=== PATIENT | male | born 1970 | race African-American/Black ===

== ENCOUNTER → 2017-07-27 | Day surgery (SDC) | payer OTHER, MEDICARE ==
[~2017-07-27] MED LIST: AMLODIPINE BESY10 MG PO; ASPIR 8181 MG PO; COREG25 MG PO; FISH OIL 1,001000 M2 PO; GLUCOTROL5 MG PO; HYDROCODONE-AP1 EAC6 PO; LIPITOR80 MG PO; MOBIC15 MG PO; PLAVIX 75 MG TA75 M1 PO
[2017-07-27 08:06] LABS: CALCIUM 8.6 mg/dL (8.5-10.1); CREATININE 4.7 mg/dL (0.6-1.3); POTASSIUM 4.7 mmol/L (3.5-5.1)
[2017-07-27 08:07] LABS: HEMATOCRIT 32.2 % (42.0-52.0); HEMOGLOBIN 10.7 gm/dL (14.0-18.0); MCHC 33.3 g/dL (28.0-37.0); MCV 93.1 fL (80.0-100.0); RBC 3.46 mil/uL (4.50-6.00); RDW-CV 13.8 % (10.5-14.5); WBC 8.7 thou/uL (4.0-11.0)
--- NOTE | 2017-07-27 11:06 | EKG ---
[place] [address] ELECTROCARDIOGRAM REPORT Name: LATISHA MCPHERSON Room: [facility]#: [id number] Admission: 07/27/17 Attend Phys: Pool Peguero Discharge: Date of : 72 Report #: [id number] THIS REPORT FOR: //name// [facility] Test Date: 2017-07-27 Test Time: 08:31:13 Pat Name: LATISHA MCPHERSON Department: Room: Gender: M Transporter Radiology: : 1970 Requested By: Pool Peguero Order Number: [id number] Reading MD: Alvaro Patel Measurements Intervals [place] Rate: 62 P: 35 UT: 153 QRS: 36 QRSD: 105 T: -10 QT: 463 QTc: 471 Interpretive Statements Sinus rhythm Probable left ventricular hypertrophy Borderline T abnormalities, inferior leads No previous ECG available for comparison Electronically Signed On 07-27-2017 11:06:18 LOOP TENDER by Alvaro Patel [email or web address] <ELECTRONICALLY SIGNED> By: Alvaro Patel MD, [facility] 07/27/17 1106 0831 0831 Alvaro Patel MD, FACC /EPI
--- NOTE | 2017-07-27 11:46 | PROC ---
[facility] [address] [place] [address] PROCEDURE REPORT Name: LATISHA MCPHERSON Room: [facility].#: [id number] Admission: 07/27/17 Attend Phys: Pool Peguero Discharge: Date of : 72 Report #: [id number] THIS REPORT FOR: //name// CC: [facility] physician/PCP Pool Peguero DATE OF SERVICE: 07/27/2017 PREOPERATIVE DIAGNOSIS: End-stage renal disease. POSTOPERATIVE DIAGNOSIS: End-stage renal disease. OPERATION: 1. Laparoscopic peritoneal dialysis catheter placement. 2. Laparoscopic omentopexy. SURGEON: Pool Peguero MD ANESTHESIA: General. ESTIMATED BLOOD LOSS: Minimal. SPECIMEN: None. DESCRIPTION OF PROCEDURE: After informed consent was obtained, the patient was brought to the operating room and placed supine. SCDs were placed and working, preoperative antibiotics were administered, general anesthesia was induced. The abdomen was prepped and draped in the usual sterile fashion. A 5 mm incision was made in the left upper quadrant. A 5 mm trocar was placed under direct vision. Pneumoperitoneum was established. A left-sided 5 mm port was placed. An 8 mm port was placed in the left rectus sheath. Catheter was placed through the 8 mm port. The port was then removed. The cuff was then brought into the rectus sheath. The catheter was then tunneled to the left upper quadrant of the abdomen. It was flushed with heparinized saline. It flushed and drained easily. Omentopexy was performed using 2-0 Vicryl. I tacked the omentum using a suture passer in the right upper and the left upper quadrant. The ports were removed under direct vision. The skin was closed with 4-0 Monocryl. Incisions were sealed with Steri-Strips and sterile gauze. COMPLICATIONS: [place] [id number] PROCEDURE REPORT Name: LATISHA MCPHERSON Room: [facility]#: [id number] Admission: 07/27/17 Attend Phys: Pool Peguero Discharge: Date of : 72 Report #: [id number] DISPOSITION: The patient was taken to recovery in satisfactory condition. <ELECTRONICALLY SIGNED> By: Pool Peguero MD 07/27/17 1146 1036 1104Pool Peguero MD /nt
== END | disposition home or self-care (01) ==
LOC: M.SUR 07:29
PROVIDERS: Student in an Organized Health Care Education/Training Program
DX: N18.9 Chronic kidney disease, unspecified (principal); Z79.82 Long term (current) use of aspirin; Z79.899 Other long term (current) drug therapy; Z79.891 Long term (current) use of opiate analgesic

== ENCOUNTER → 2019-10-12 | Outpatient (CLI) | payer MEDICARE ==
[~2019-10-12] MED LIST changes: +FENOFIBRATE160 MG PO; +LACTULOSE20 GM/30 M PO; +MAG-OXIDE400 MG PO; +MIRALAX17 GM PO; +NIFEDIPINE ER60 M1 PO; +PROTONIX40 M1 PO; +SODIUM BICARBO650 M3 PO; +VITAMIN D PO
== END | disposition home or self-care (01) ==
LOC: M.SUR 10-06 07:33 → M.LAB 08:00 → M.SUR 10-13 06:48 → EDSTATUS 10-13 14:07 → M.SUR 10-13 15:32
DX: N18.6 End stage renal disease (principal); Z53.8 Procedure and treatment not carried out for other reasons

== ENCOUNTER → 2019-10-25 | Day surgery (SDC) | payer MEDICARE, MEDICAID ==
[~2019-10-25] MED LIST changes: +NORCO 5-325 TA1 EAC1 PO
--- NOTE | ~2019-10-25 | OP ---
[facility] [address] [place] [address] OPERATIVE REPORT Name: LATISHA MCPHERSON Room: [facility]#: [id number] Admission: 10/25/19 Attend Phys: Pool Peguero Discharge: Date of : 72 Report #: [id number] THIS REPORT FOR: //name// cc: Nathan Zhao Matthew DO ~ THIS REPORT FOR: //name// CC: Pool Zhao DATE OF SERVICE: 10/25/2019 PREOPERATIVE DIAGNOSIS: Infected peritoneal catheter. POSTOPERATIVE DIAGNOSIS: Infected peritoneal catheter. PROCEDURE: Removal of tunneled intraperitoneal catheter. SURGEON: Pool Peguero MD ANESTHESIA: General. ESTIMATED BLOOD LOSS: Minimal. SPECIMEN: Catheter tip for culture and sensitivity. DESCRIPTION OF PROCEDURE: After informed consent was obtained, the patient was brought to the operating room and placed supine. SCDs were placed and working, preoperative antibiotics were administered, general anesthesia was induced. The abdomen was prepped and draped in the usual sterile fashion. A 10 mm incision was made over the internal cuff site. Cautery dissection was made down through the subcutaneous tissue. The internal cuff was identified. It was freed up with cautery. The catheter pulled out easily. I then extended the exit site incision approximately 1 cm. The external cuff was identified. It was freed up with cautery. The catheter then slid out very easily. The skin was then closed with 4-0 Monocryl in running subcuticular fashion. Incisions were sealed with Dermabond. COMPLICATIONS: None. DISPOSITION: The patient was taken to recovery in satisfactory condition. By: 1303 1310Pool Peguero MD /nt
[2019-10-25 11:03] LABS: HEMOGLOBIN 10.1 gm/dL (14.0-18.0); MCHC 33.7 g/dL (28.0-37.0); MCV 95.1 fL (80.0-100.0); MPV 8.6 fl. (7.2-11.1); RBC 3.15 mil/uL (4.50-6.00); RDW-CV 13.9 % (10.5-14.5); WBC 8.3 thou/uL (4.0-11.0)
[2019-10-25 11:18] LABS: CREATININE 9.2 mg/dL (0.6-1.3)
[2019-10-25 11:20] LABS: APTT 27.3 Seconds (25.0-31.3); INR 1.1; PROTIME 11.3 Seconds (9.20-11.50)
--- NOTE | 2019-10-25 14:14 | EKG ---
[place] [address] ELECTROCARDIOGRAM REPORT Name: KYLATISHA Bradley Room: [facility]#: [id number] Admission: 10/25/19 Attend Phys: Pool Hopper Discharge: Date of : 72 Date of Service: 10/25/19 1041 Report #: [id number] THIS REPORT FOR: //name// [facility] Test Date: 2019-10-25 Test Time: 10:41:28 Pat Name: LATISHA MCPHERSON Department: Room: Gender: Design Lead[facility] 1970 Requested By: Pool Peguero Order Number: [id number] Laverne MD: Alvaro Patel Measurements Intervals [place] Rate: 55 P: 26 ND: 163 QRS: 18 QRSD: 103 T: 11 QT: 463 QTc: 443 Interpretive Statements Sinus rhythm Probable left ventricular hypertrophy Compared to ECG 07/27/2017 08:31:13 T-wave abnormality no longer present Electronically Signed On 10-25-2019 14:12:59 CDT by Alvaro Patel [email or web address] <ELECTRONICALLY SIGNED> By: Alvaro Patel MD, [facility] 10/25/19 1412 1041 1041 Alvaro Patel MD, [facility] /EPI
== END | disposition home or self-care (01) ==
LOC: M.SUR 05:52
PROVIDERS: Surgery
DX: T85.79XA Infection and inflammatory reaction due to other internal prosthetic devices, implants and grafts, initial encounter (principal); B96.89 Other specified bacterial agents as the cause of diseases classified elsewhere; Z98.890 Other specified postprocedural states; Z79.899 Other long term (current) drug therapy; Y83.8 Other surgical procedures as the cause of abnormal reaction of the patient, or of later complication, without mention of misadventure at the time of the procedure

== ENCOUNTER → 2019-12-18 | Day surgery (SDC) | payer MEDICARE, MEDICAID ==
[~2019-12-18] MED LIST changes: +LORCET 5-325 M1 EACH PO; +NORCO 5-325 TA1 EAC2 PO
[2019-12-18 07:27] LABS: HEMATOCRIT 36.1 % (42.0-52.0); HEMOGLOBIN 12.2 gm/dL (14.0-18.0); MCH 33.3 pg (26.0-34.0); MCHC 33.7 g/dL (28.0-37.0); MCV 98.7 fL (80.0-100.0); MPV 8.7 fl. (7.2-11.1); RBC 3.66 mil/uL (4.50-6.00); RDW-CV 15.8 % (10.5-14.5); WBC 7.3 thou/uL (4.0-11.0)
[2019-12-18 07:31] LABS: CALCIUM 8.4 mg/dL (8.5-10.1); CREATININE 10.8 mg/dL (0.6-1.3)
[2019-12-18 07:33] LABS: APTT 25.3 Seconds (25.0-31.3); PROTIME 10.5 Seconds (9.20-11.50)
--- NOTE | 2019-12-21 13:14 | OP ---
[facility] [address] [place] [address] OPERATIVE REPORT Name: LATISHA MCPHERSON Room: [facility]#: [id number] Admission: 12/18/19 Attend Phys: Pool Peguero Discharge: Date of : 72 Report #: [id number] THIS REPORT FOR: //name// cc: Nathan Zhao Matthew DO ~ THIS REPORT FOR: //name// CC: Pool Zhao DATE OF SERVICE: 12/18/2019 PREOPERATIVE DIAGNOSIS: End-stage renal disease. POSTOPERATIVE DIAGNOSIS: End-stage renal disease. PROCEDURES: 1. Laparoscopic placement of tunneled intraperitoneal catheter. 2. Laparoscopic omentopexy. SURGEON: Pool Peguero MD ANESTHESIA: General. ESTIMATED BLOOD LOSS: Minimal. SPECIMEN: None. DESCRIPTION OF PROCEDURE: After informed consent was obtained, the patient was brought to the operating room and placed supine. SCDs were placed and working, preoperative antibiotics were administered, general anesthesia was induced. The abdomen was prepped and draped in the usual sterile fashion. A 5 mm incision was made in the left upper quadrant. A 5 mm trocar was placed under direct vision. Pneumoperitoneum was established. A left-sided 5 mm trocar was placed. An 8 mm trocar was placed in the right rectus sheath. The 62 cm [employer] catheter was placed through the catheter. Tip was then placed into the pelvis in the midline. Catheter was then tunneled to the right upper quadrant of the abdomen using a tunneling device. The omentum and the midline was then grasped and brought up to the abdominal wall. It was tacked to the abdominal wall using a PMI suture passer and a 2-0 Vicryl suture. The CO2 was then released. The catheter flushed easily with 750 mL of heparinized saline. It drained easily as well. 500 mL of fluid was left in the abdomen. The skin was then closed with 4-0 Monocryl[place] [address] OPERATIVE REPORT Name: LATISHA MCPHERSON Room: [facility]#: [id number] Admission: 12/18/19 Attend Phys: Pool Peguero Discharge: Date of : 72 Report #: [id number] with Steri-Strips and gauze. Sterile occlusive dressing was applied. COMPLICATIONS: None. DISPOSITION: The patient was taken to recovery in satisfactory condition. <ELECTRONICALLY SIGNED> By: Pool Peguero MD 12/21/19 1314 1018 1024Pool Peguero MD /nt
== END | disposition home or self-care (01) ==
LOC: M.SUR 07:02
PROVIDERS: ATTEND Surgery
DX: I12.0 Hypertensive chronic kidney disease with stage 5 chronic kidney disease or end stage renal disease (principal); E11.22 Type 2 diabetes mellitus with diabetic chronic kidney disease; N18.6 End stage renal disease; G47.30 Sleep apnea, unspecified; F32.9 Major depressive disorder, single episode, unspecified; F41.9 Anxiety disorder, unspecified; E78.00 Pure hypercholesterolemia, unspecified; Z79.899 Other long term (current) drug therapy; Z20.828 Contact with and (suspected) exposure to other viral communicable diseases; Z86.73 Personal history of transient ischemic attack (TIA), and cerebral infarction without residual deficits; Z79.84 Long term (current) use of oral hypoglycemic drugs; Z98.890 Other specified postprocedural states; Z79.82 Long term (current) use of aspirin

== ENCOUNTER 2019-12-19 10:48 | Emergency (ER) | payer MEDICARE, MEDICAID ==
[~2019-12-19] VITALS: Ht 203.2 cm; Wt 102.1 kg
[~2019-12-19 10:48] MED LIST changes: -LORCET 5-325 M1 EACH PO
[2019-12-19 11:59] VITALS: BP 181/88
== END 2019-12-19 12:00 | disposition home or self-care (01) ==
LOC: M.ERS 10:48
DX: L76.21 Postprocedural hemorrhage of skin and subcutaneous tissue following a dermatologic procedure (principal); G89.18 Other acute postprocedural pain; R10.84 Generalized abdominal pain; E11.22 Type 2 diabetes mellitus with diabetic chronic kidney disease; N18.6 End stage renal disease; M06.9 Rheumatoid arthritis, unspecified; Z99.2 Dependence on renal dialysis; Z86.73 Personal history of transient ischemic attack (TIA), and cerebral infarction without residual deficits; Y83.8 Other surgical procedures as the cause of abnormal reaction of the patient, or of later complication, without mention of misadventure at the time of the procedure; Y82.8 Other medical devices associated with adverse incidents

== ENCOUNTER 2019-12-19 13:36 | Emergency (ER) | payer MEDICARE, MEDICAID ==
[~2019-12-19] VITALS: Ht 203.2 cm; Wt 102.1 kg
[2019-12-19 14:51] VITALS: BP 151/70
== END 2019-12-19 14:52 | disposition home or self-care (01) ==
LOC: M.ERS 13:36
DX: G89.18 Other acute postprocedural pain (principal); R10.11 Right upper quadrant pain; R10.84 Generalized abdominal pain; E11.9 Type 2 diabetes mellitus without complications; M06.9 Rheumatoid arthritis, unspecified; E11.22 Type 2 diabetes mellitus with diabetic chronic kidney disease; N18.6 End stage renal disease; Z99.2 Dependence on renal dialysis

== ENCOUNTER → 2020-02-02 | Day surgery (SDC) | payer MEDICARE, MEDICAID ==
[~2020-02-02] MED LIST changes: +LORCET 5-325 M1 EACH PO
--- NOTE | ~2020-02-02 | OP ---
[facility] [address] [place] [address] OPERATIVE REPORT Name: LATISHA MCPHERSON Room: [facility]#: [id number] Admission: 02/02/20 Attend Phys: Pool Peguero Discharge: Date of : 72 Report #: [id number] THIS REPORT FOR: //name// cc: Nathan Zhao Matthew DO ~ CC: Pool Zhao DATE OF SERVICE: 02/02/2020 PREOPERATIVE DIAGNOSIS: Infected peritoneal catheter. POSTOPERATIVE DIAGNOSIS: Infected peritoneal catheter. PROCEDURE: Removal of tunneled intraperitoneal catheter. SURGEON: Pool Peguero MD ANESTHESIA: General. ESTIMATED BLOOD LOSS: Minimal. SPECIMEN: None. DESCRIPTION OF PROCEDURE: After informed consent was obtained, the patient was brought to the operating room and placed supine. SCDs were placed and working, preoperative antibiotics were administered, general anesthesia was induced. The abdomen was prepped and draped in usual sterile fashion. A 1 cm elliptical incision was made around the external cuff. Cautery dissection was made to free up the cuff. I then made a counter incision over the internal cuff. Cautery dissection was made down to the fascia and the internal cuff was freed up. The catheter then was removed very easily. The fascia at the internal cuff site was closed with a single [id number] 0 Vicryl suture. Skin was closed with 4-0 Monocryl in running subcuticular fashion. Incisions were dressed with Steri-Strips and gauze. COMPLICATIONS: None. DISPOSITION: The patient was taken to recovery in satisfactory condition. By: 1157 1208Joibrahima Peguero MD /nt
[2020-02-02 10:10] LABS: HEMATOCRIT 28.2 % (42.0-52.0); HEMOGLOBIN 9.6 gm/dL (14.0-18.0); MCH 33.2 pg (26.0-34.0); MCV 97.7 fL (80.0-100.0); MPV 8.3 fl. (7.2-11.1); RBC 2.89 mil/uL (4.50-6.00); RDW-CV 14.9 % (10.5-14.5); WBC 8.4 thou/uL (4.0-11.0)
[2020-02-02 10:18] LABS: CALCIUM 8.6 mg/dL (8.5-10.1); CREATININE 9.6 mg/dL (0.6-1.3); POTASSIUM 4.1 mmol/L (3.5-5.1)
[2020-02-02 10:22] LABS: APTT 26.4 Seconds (25.0-31.3); INR 1.1
--- NOTE | 2020-02-02 10:34 | EKG ---
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 Administrator: : 1970 Requested By: Pool Peguero Order Number: [id number] Laverne MD: Panfilo Dos Santos Measurements Intervals [place] Rate: 60 P: 27 [place]: 156 QRS: 20 QRSD: 106 T: 27 QT: 457 QTc: 457 Interpretive Statements Sinus rhythm Probable left ventricular hypertrophy Compared to ECG 10/25/2019 10:41:28 No significant changes Electronically Signed On 02-02-2020 10:34:01 CDT by Panfilo Dos Santos [email or web address] <ELECTRONICALLY SIGNED> By: Panfilo Dos Santos MD, [facility] 02/02/20 1034 0954 0954 Panfilo Dos Santos MD, [facility] /EPI
== END | disposition home or self-care (01) ==
LOC: M.SUR 09:25
PROVIDERS: ATTEND Surgery
DX: T85.71XA Infection and inflammatory reaction due to peritoneal dialysis catheter, initial encounter (principal); Z20.828 Contact with and (suspected) exposure to other viral communicable diseases; E11.22 Type 2 diabetes mellitus with diabetic chronic kidney disease; N18.6 End stage renal disease; Z86.73 Personal history of transient ischemic attack (TIA), and cerebral infarction without residual deficits; X58.XXXA Exposure to other specified factors, initial encounter; Y93.89 Activity, other specified; Y92.89 Other specified places as the place of occurrence of the external cause; Y99.8 Other external cause status

== ENCOUNTER → 2020-04-02 | Outpatient (CLI) | payer MEDICARE, MEDICAID | LOC: M.LAB 10:39 | PROVIDERS: ATTEND Surgery | DX: Z01.812 Encounter for preprocedural laboratory examination (principal); Z20.828 Contact with and (suspected) exposure to other viral communicable diseases; N18.6 End stage renal disease ==

== ENCOUNTER → 2020-04-05 | Day surgery (SDC) | payer MEDICARE, MEDICAID ==
--- NOTE | ~2020-04-05 | OP ---
[facility] [address] [place] [address] OPERATIVE REPORT Name: LATISHA MCPHERSON Room: [facility]#: [id number] Admission: 04/05/20 Attend Phys: Pool Peguero Discharge: Date of : 72 Report #: [id number] THIS REPORT FOR: //name// cc: Nathan Zhao Matthew DO ~ CC: Pool Zhao DATE OF SERVICE: 04/05/2020 PREOPERATIVE DIAGNOSIS: End-stage renal disease. POSTOPERATIVE DIAGNOSIS: End-stage renal disease. OPERATION: Laparoscopic placement of tunneled intraperitoneal catheter. SURGEON: Pool Peguero MD ANESTHESIA: General. ESTIMATED BLOOD LOSS: Minimal. SPECIMEN: None. DESCRIPTION OF PROCEDURE: After informed consent was obtained, the patient was brought to the operating room and placed supine. SCDs were placed and working, preoperative antibiotics were administered, general anesthesia was induced. The abdomen was prepped and draped in the usual sterile fashion. A 5 mm incision was made in the left upper quadrant. A 5 mm trocar was placed under direct vision. Pneumoperitoneum was established. A left rectus sheath, 8 mm trocar was placed. 62 cm Covidien catheter was inserted. It was then pulled back, so that the internal cuff was in the left rectus sheath. It was tunneled to the left upper quadrant of the abdomen. Catheter flushed easily with 750 mL of normal saline and drained easily as well. 500 mL was left in the abdomen. The ports were removed under direct vision. The skin was closed with 4-0 Monocryl. Incisions were sealed with Dermabond. COMPLICATIONS: None. DISPOSITION: The patient was taken to recovery in satisfactory condition. By: 0944 0948Pool Peguero MD /nt
[2020-04-05 06:57] LABS: HEMATOCRIT 36.3 % (42.0-52.0); MCH 32.6 pg (26.0-34.0); MCHC 33.2 g/dL (28.0-37.0); MPV 8.6 fl. (7.2-11.1); RBC 3.7 mil/uL (4.50-6.00); RDW-CV 15.5 % (10.5-14.5); WBC 9.2 thou/uL (4.0-11.0)
[2020-04-05 07:05] LABS: CALCIUM 9.2 mg/dL (8.5-10.1); CREATININE 8.6 mg/dL (0.6-1.3); POTASSIUM 4.8 mmol/L (3.5-5.1)
== END | disposition home or self-care (01) ==
LOC: M.SUR 06:37
PROVIDERS: Family Medicine; ATTEND Surgery
DX: E11.22 Type 2 diabetes mellitus with diabetic chronic kidney disease (principal); N18.6 End stage renal disease; M06.9 Rheumatoid arthritis, unspecified; Z86.73 Personal history of transient ischemic attack (TIA), and cerebral infarction without residual deficits; Z99.2 Dependence on renal dialysis; Z79.899 Other long term (current) drug therapy; Z88.8 Allergy status to other drugs, medicaments and biological substances; Z98.890 Other specified postprocedural states

== ENCOUNTER → 2020-05-17 | Outpatient (CLI) | payer MEDICARE, MEDICAID | LOC: M.LAB 09:18 | PROVIDERS: ATTEND Surgery | DX: Z01.812 Encounter for preprocedural laboratory examination (principal); Z20.828 Contact with and (suspected) exposure to other viral communicable diseases ==

== ENCOUNTER → 2020-05-22 | Day surgery (SDC) | payer MEDICARE, MEDICAID ==
--- NOTE | ~2020-05-22 | OP ---
[facility] [address] [place] [address] OPERATIVE REPORT Name: LATISHA MCPHERSON Room: [facility]#: [id number] Admission: 05/22/20 Attend Phys: Pool Peguero Discharge: Date of : 72 Report #: [id number] THIS REPORT FOR: cc: Nathan Zhao Matthew DO ~ Patterson, Jonathan D. MD DATE OF SERVICE: 05/22/2020 PREOPERATIVE DIAGNOSIS: Malfunctioning peritoneal catheter. POSTOPERATIVE DIAGNOSIS: Malfunctioning peritoneal catheter. OPERATION: Diagnostic laparoscopy. SURGEON: Pool Peguero MD ANESTHESIA: General. ESTIMATED BLOOD LOSS: Minimal. SPECIMEN: None. DESCRIPTION OF PROCEDURE: After informed consent was obtained, the patient was brought to the operating room and placed supine. SCDs were placed and working, preoperative antibiotics were administered, general anesthesia was induced. The abdomen was prepped and draped in the usual sterile fashion. A 5 mm incision was made in the left upper quadrant. A 5 mm trocar was placed under direct vision. Pneumoperitoneum was established. A left-sided 5 mm trocar was placed under direct vision. The catheter was down in the pelvis. However, there was some small bowel that had plastered to the left pelvic side wall. The catheter was pulled out of this tunnel and placed back into the pelvis. It then flushed easily with heparinized saline. The ports were then removed under direct vision. The skin was closed with 4-0 Monocryl. Incisions were dressed with Steri-Strips. COMPLICATIONS: None. DISPOSITION: The patient was taken to [place] [address] OPERATIVE REPORT Name: LATISHA MCPHERSON Kirk Room: [facility]#: [id number] Admission: 05/22/20 Attend Phys: Pool Peguero Discharge: Date of : 72 Report #: [id number] 06/13/2020: report amended to correct demographic error By: 0833Pool Peguero MD /gisella
[2020-05-22 06:46] LABS: CALCIUM 8.3 mg/dL (8.5-10.1); CREATININE 9.6 mg/dL (0.6-1.3); POTASSIUM 4.1 mmol/L (3.5-5.1)
[2020-05-22 06:51] LABS: APTT 25.1 Seconds (25.0-31.3); INR 1.1; PROTIME 11.5 Seconds (9.20-11.50)
== END | disposition home or self-care (01) ==
LOC: M.SUR 05:55
PROVIDERS: ATTEND Surgery
DX: T85.691A Other mechanical complication of intraperitoneal dialysis catheter, initial encounter (principal)

== ENCOUNTER → 2020-06-18 | Outpatient (CLI) | payer OTHER, MEDICAID ==
[~2020-06-18] MED LIST changes: +HYDROCODON-ACE1 EAC7 PO
== END ==
LOC: M.LAB 10:17
PROVIDERS: ATTEND Surgery
DX: Z01.812 Encounter for preprocedural laboratory examination (principal); Z20.822 Contact with and (suspected) exposure to COVID-19; N18.6 End stage renal disease

== ENCOUNTER → 2020-06-21 | Day surgery (SDC) | payer OTHER, MEDICAID ==
[2020-06-21 11:14] LABS: HEMATOCRIT 32.6 % (42.0-52.0); MCH 33.1 pg (26.0-34.0); MCHC 33.8 g/dL (28.0-37.0); MCV 98.1 fL (80.0-100.0); MPV 7.7 fl. (7.2-11.1); RBC 3.33 mil/uL (4.50-6.00); RDW-CV 17.2 % (10.5-14.5)
[2020-06-21 11:23] LABS: CALCIUM 9.4 mg/dL (8.5-10.1); CREATININE 9.3 mg/dL (0.6-1.3)
[2020-06-21 11:27] LABS: APTT 24.1 Seconds (25.0-31.3); PROTIME 10.6 Seconds (9.20-11.50)
--- NOTE | 2020-06-25 10:16 | OP ---
[facility] [address] [place] [address] OPERATIVE REPORT Name: LATISHA MCPHERSON Room: [facility]#: [id number] Admission: 06/21/20 Attend Phys: Pool Peguero Discharge: Date of : 72 Report #: [id number] THIS REPORT FOR: cc: Nathan Zhao Matthew DO ~ Patterson, Jonathan D. MD DATE OF SERVICE: 06/21/2020 PREOPERATIVE DIAGNOSIS: Malfunctioning peritoneal catheter. POSTOPERATIVE DIAGNOSIS: Malfunctioning peritoneal catheter. OPERATION: Diagnostic laparoscopy. SURGEON: Pool Peguero MD. ANESTHESIA: General. ESTIMATED BLOOD LOSS: Minimal. SPECIMEN: None. DESCRIPTION OF PROCEDURE: After informed consent was obtained, the patient was brought to the operating room and placed supine. SCDs were placed and working, preoperative antibiotics were administered, general anesthesia was induced. The abdomen was prepped and draped in the usual sterile fashion. A 5 mm incision was made in the left upper quadrant. A 5 mm trocar was placed under direct vision. Pneumoperitoneum was established. A left-sided 5 mm trocar was placed. I examined the pelvis. The catheter was stuck in a matted area of small bowel up to the anterior abdominal wall. Catheter was then pulled out easily. It was then placed into the pelvis. It flushed easily. The ports were then removed under direct vision. The skin was closed with 4-0 Monocryl. Incisions were sealed with Steri-Strips. COMPLICATIONS: None. DISPOSITION: The patient was taken to recovery in satisfactory condition. <ELECTRONICALLY SIGNED> By: Pool Peguero MD 06/25/20 1016 1415 1424Pool Peguero MD /nt
== END | disposition home or self-care (01) ==
LOC: M.SUR 05:15
PROVIDERS: ATTEND Surgery
DX: T85.611A Breakdown (mechanical) of intraperitoneal dialysis catheter, initial encounter (principal); Y83.8 Other surgical procedures as the cause of abnormal reaction of the patient, or of later complication, without mention of misadventure at the time of the procedure; E11.22 Type 2 diabetes mellitus with diabetic chronic kidney disease; I12.0 Hypertensive chronic kidney disease with stage 5 chronic kidney disease or end stage renal disease; N18.6 End stage renal disease; Z99.2 Dependence on renal dialysis; Z79.84 Long term (current) use of oral hypoglycemic drugs; E78.5 Hyperlipidemia, unspecified; F41.9 Anxiety disorder, unspecified; F32.9 Major depressive disorder, single episode, unspecified; I69.351 Hemiplegia and hemiparesis following cerebral infarction affecting right dominant side; I48.91 Unspecified atrial fibrillation; G47.33 Obstructive sleep apnea (adult) (pediatric); M06.9 Rheumatoid arthritis, unspecified; G89.18 Other acute postprocedural pain; Z79.82 Long term (current) use of aspirin; Z79.899 Other long term (current) drug therapy; Z79.01 Long term (current) use of anticoagulants

== ENCOUNTER → 2020-07-29 | Outpatient (CLI) | payer OTHER, MEDICAID ==
[2020-07-29 12:29] LABS: CALCIUM 9.6 mg/dL (8.5-10.1); CREATININE 15.2 mg/dL (0.6-1.3)
== END ==
LOC: M.LAB 11:58
PROVIDERS: ATTEND Nurse Practitioner Family
DX: N18.6 End stage renal disease (principal)

== ENCOUNTER → 2020-08-09 | Day surgery (SDC) | payer OTHER, MEDICAID ==
[~2020-08-09] MED LIST changes: +NORCO5 PO
--- NOTE | ~2020-08-09 | OP ---
[facility] [address] [place] [address] OPERATIVE REPORT Name: LATISHA MCPHERSON Room: [facility]#: [id number] Admission: 08/09/20 Attend Phys: Pool Peguero Discharge: Date of : 72 Report #: [id number] THIS REPORT FOR: cc: Nathan Zhao Matthew DO ~ Patterson, Jonathan D. MD DATE OF SERVICE: 08/09/2020 PREOPERATIVE DIAGNOSIS: End-stage renal disease with malfunctioning peritoneal catheter. POSTOPERATIVE DIAGNOSIS: End-stage renal disease with malfunctioning peritoneal catheter. OPERATION: Removal of tunneled intraperitoneal catheter. SURGEON: oPol Peguero MD ANESTHESIA: General. ESTIMATED BLOOD LOSS: Minimal. SPECIMEN: None. DESCRIPTION OF PROCEDURE: After informed consent was obtained, the patient was brought to the operating room and placed supine. SCDs were placed and working, preoperative antibiotics were administered, general anesthesia was induced. The abdomen was prepped and draped in the usual sterile fashion. I made a 1 cm elliptical incision around the exit site of the catheter. Catheter was dissected around. The external cuff was dissected around. A counter incision was made over the internal cuff site. Cautery dissection was made down to the fascia and the internal cuff was freed up and the catheter then slid out very easily. The skin was then closed with 4-0 Monocryl. Incisions were dressed with Steri-Strips. COMPLICATIONS: None. DISPOSITION: The patient was taken to recovery in satisfactory condition. By: 1225 1233Pool Peguero MD /nt
[2020-08-09 07:39] LABS: HEMATOCRIT 32.1 % (42.0-52.0); HEMOGLOBIN 10.4 gm/dL (14.0-18.0); MCH 31.5 pg (26.0-34.0); MCHC 32.4 g/dL (28.0-37.0); MCV 97.1 fL (80.0-100.0); RBC 3.31 mil/uL (4.50-6.00); RDW-CV 15.9 % (10.5-14.5); WBC 7.6 thou/uL (4.0-11.0)
[2020-08-09 07:46] LABS: CALCIUM 8.6 mg/dL (8.5-10.1); CREATININE 8.1 mg/dL (0.6-1.3); POTASSIUM 3.8 mmol/L (3.5-5.1)
[2020-08-09 07:50] LABS: PROTIME 11.1 Seconds (9.20-11.50)
--- NOTE | 2020-08-09 09:37 | EKG ---
[place] [address] ELECTROCARDIOGRAM REPORT Name: KYLATISHA L Room: [facility]#: [id number] Admission: 08/09/20 Attend Phys: Pool Hopper Discharge: Date of : 72 Date of Service: 08/09/20714 Report #: [id number] THIS REPORT FOR: //name// [facility] Test Date: 2020-08-09 Test Time: 07:15:52 Pat Name: LATISHA MCPHERSON Department: Room: Gender: Processor Inspector: : 1970 Requested By: Pool Peguero Order Number: [id number] Laverne MD: Alvaro Patel Measurements Intervals [place] Rate: 58 P: 22 ND: 163 QRS: 17 QRSD: 106 T: 19 QT: 472 QTc: 464 Interpretive Statements Sinus rhythm with short pr interval Probable left ventricular hypertrophy Compared to ECG 02/02/2020 09:54:09 No significant changes Electronically Signed On 08-09-2020 9:37:29 SWEATER OPERATOR by Alvaro Patel [email or web address] <ELECTRONICALLY SIGNED> By: Alvaro Patel MD, [facility] 08/09/20 0937 4 4 Alvaro Patel MD, [facility] /EPI
== END | disposition home or self-care (01) ==
LOC: M.SUR 06:32
PROVIDERS: ATTEND Surgery
DX: T85.691A Other mechanical complication of intraperitoneal dialysis catheter, initial encounter (principal); E11.22 Type 2 diabetes mellitus with diabetic chronic kidney disease; N18.6 End stage renal disease; M06.9 Rheumatoid arthritis, unspecified; Z98.890 Other specified postprocedural states; Z79.899 Other long term (current) drug therapy; Z20.822 Contact with and (suspected) exposure to COVID-19; Z86.73 Personal history of transient ischemic attack (TIA), and cerebral infarction without residual deficits; Z79.891 Long term (current) use of opiate analgesic; Z79.82 Long term (current) use of aspirin; Y83.8 Other surgical procedures as the cause of abnormal reaction of the patient, or of later complication, without mention of misadventure at the time of the procedure

== ENCOUNTER 2021-04-14 11:04 | Inpatient (IN) | payer OTHER, MEDICAID ==
[2021-04-14] VITALS (29 sets, daily range): BP systolic 104–156; BP diastolic 49–121
[~2021-04-14] VITALS: Ht 203.2 cm; Wt 87.5 kg
[2021-04-14 11:31] LABS: HEMATOCRIT 39.1 % (42.0-52.0); HEMOGLOBIN 12.9 gm/dL (14.0-18.0); MCH 30.9 pg (26.0-34.0); MCHC 32.9 g/dL (28.0-37.0); MCV 93.8 fL (80.0-100.0); NUCLEATED RBCS 0 /100WBC; PLATELET COUNT* 453 thou/uL (150-400); RBC 4.17 mil/uL (4.50-6.00); RDW-CV 13.2 % (10.5-14.5)
[2021-04-14 11:32] LABS: BE -6.7 mmol/L (-2 to +3); PCO2 VENOUS 27.8 mmHg (41.0-51.0); PO2 VENOUS 73.1 mmHg (35.0-45.0)
[2021-04-14 11:58] LABS: APTT 25.3 Seconds (25.0-31.3); PROTIME 10.3 Seconds (9.20-11.50)
[2021-04-14 12:17] LABS: CALCIUM 9.1 mg/dL (8.5-10.1); CREATININE 2.3 mg/dL (0.6-1.3); POTASSIUM 5.2 mmol/L (3.5-5.1)
[2021-04-14 12:27] LABS: ALBUMIN 3.2 g/dL (3.4-5.0); CK-MB MASS 2.3 ng/mL (<0.5-3.6); MAGNESIUM 2.5 mg/dL (1.8-2.4); TOTAL BILIRUBIN 0.3 mg/dL (<0.1-1.0); TOTAL PROTEIN 7.5 g/dL (6.4-8.2)
--- NOTE | 2021-04-14 12:28 | EKG ---
[place] [address] ELECTROCARDIOGRAM REPORT Name: LATISHA MCPHERSON Room: [facility]#: [id number] Admission: 04/14/21 Attend Phys: Discharge: Date of : 72 Date of Service: 04/14/21 1110 Report #: [id number] THIS REPORT FOR: //name// [facility] ED Test Date: 2021-04-14 Test Time: 11:10:34 Pat Name: LATISHA MCPHERSON Department: Room: Gender: Wash And Greaser: : 1970 Requested By: Frank Stanley Order Number: [id number] MD: Alvaro Patel Measurements Intervals [place] Rate: 169 P: 0 [place]: 103 QRS: 39 QRSD: 88 T: 225 QT: 273 QTc: 458 Interpretive Statements atrial fibrillation with abberantly conductied complexes LVH with secondary repolarization abnormality ST depression, probably rate related Compared to ECG 08/09/2020 07:15:52 Early repolarization now present ST (T wave) deviation now present Sinus rhythm no longer present Electronically Signed On 04-14-2021 12:28:35 ASSOCIATE PROFESSOR PHYSICIAN by Alvaro Patel [email or web address] <ELECTRONICALLY SIGNED> By: Alvaro Patel MD, [facility] 04/14/21 1228 1110 1110 Alvaro Patel MD, [facility] /EPI
[2021-04-14 12:33] LABS: ABSOLUTE LYMPHOCYTES 0.5 thou/uL (0.8-5.3); ABSOLUTE MONOCYTES 0.5 thou/uL (0.0-1.2); PLATELET ESTIMATE ADEQUATE
--- NOTE | 2021-04-14 16:54 | 2DMMODE ---
[place] [address] 2 D/M-MODE ECHOCARDIOGRAM Name: LATISHA MCPEHRSON Kirk Room: [address] [place].#: [id number] Admission: 04/14/21 Attend Phys: Macey Man, Discharge: Date of : 72 Date of Service: 04/14/21 1654 Report #: [id number] THIS REPORT FOR: cc: Nathan Zhao,Nathan Jackson,Alvaro Ambrosio MD [facility] ~ APPROVED REPORT Study performed: 04/14/2021 15:12:40 EXAM: Comprehensive 2D, Doppler, and color-flow Echocardiogram Patient Location: In-Patient Room #: 003 Status: routine BSA: 2.06 HR: 144 bpm BP: 109/74 mmHg Rhythm: Atrial Fibrillation Other Information Study Quality: Good Indications Atrial Fibrillation 2D Dimensions IVSd: 14.10 (7-11mm) LVOT Diam: 21.21 (18-24mm) LVDd: 42.60 mm PWd: 12.43 (7-11mm) Ascending Ao: 34.68 (22-36mm) LVDs: 25.00 (25-40mm) Aortic Root: 35.76 mm Volumes Left Atrial Volume (Systole) LA ESV Index: 45.70 mL/m2 Aortic Valve AoV Peak Rodrigo.: 1.38 m/s AO Peak Gr.: 7.66 mmHg LVOT Max P.08 mmHg AO Mean Gr.: 4.62 mmHg LVOT Mean P.47 mmHg LVOT Max V: 0.88 m/s AO V2 VTI: 17.78 cm LVOT Mean V: 0.54 m/s JLUIS (VTI): 2.82 cm2 LVOT V1 VTI: 14.21 [place] [address] 2 D/M-MODE ECHOCARDIOGRAM Name: LATISHA MCPHERSON Room: [address] [place] [facility]#: [id number] Admission: 04/14/21 Attend Phys: Macey Man, Discharge: Date of : 72 Date of Service: 04/14/21 1654 Report #: [id number] Pulmonary Valve PV Peak Rodrigo.: 2.71 m/s PV Peak Gr.: 29.45 mmHg Left Ventricle The left ventricle is normal size. There is normal LV segmental wall motion. Moderate concentric left ventricular hypertrophy. Left ventricular systolic function is normal. The left ventricular ejection fraction is within the normal range. LVEF is 60-65%. This study is not technically sufficient to allow evaluation of the LV diastolic function due to atrial fibrillation. Right Ventricle The right ventricle is normal size. The right ventricular systolic function is normal. Atria Left atrium is moderately dilated. The right atrium size is normal. Aortic Valve The aortic valve is normal in structure. Trace aortic regurgitation. There is no aortic valvular stenosis. Mitral Valve The mitral valve is normal in structure. Trace mitral regurgitation. No evidence of mitral valve stenosis. Tricuspid Valve The tricuspid valve is normal in structure. Unable to assess PA pressure. Trace tricuspid regurgitation. Pulmonic Valve The pulmonary valve is normal in structure. Trace pulmonic regurgitation. Great Vessels The aortic root is normal in size. IVC is normal in size and collapses >50% with inspiration. Pericardium Trace pericardial effusion. <Conclusion> Moderate concentric [place] [address] 2 D/M-MODE ECHOCARDIOGRAM Name: LATISHA MCPHERSON Kirk Room: [address] [place] [facility].#: [id number] Admission: 04/14/21 Attend Phys: Macey Man, Discharge: Date of : 72 Date of Service: 04/14/211653 Report #: [id number] LVEF is 60-65%. Left atrium is moderately dilated. <ELECTRONICALLY SIGNED> By: Alvaro Patel MD, [facility] 04/14/211653 53 1654 Alvaro Patel MD, FACC /INF
[2021-04-14] MEDS ORDERED: GLIPIZIDE ER5 MG PO (18:43)
[2021-04-14] MEDS ORDERED: COREG6.25 MG PO (18:44)
[2021-04-14] MEDS ORDERED: PREDNISONE 5 MG5 MG PO (18:44)
[2021-04-14] MEDS ORDERED: PROGRAF5 MG PO (18:44)
[2021-04-14] MEDS ORDERED: ATOVAQUONE750 MG/5 M PO (18:45)
[2021-04-14] MEDS ORDERED: MYCOPHENOLIC A360 MG PO (18:45)
[2021-04-15] VITALS (39 sets, daily range): BP systolic 107–160; BP diastolic 58–86
[2021-04-15 03:58] LABS: HEMATOCRIT 37.5 % (42.0-52.0); HEMOGLOBIN 12.2 gm/dL (14.0-18.0); MCH 30.2 pg (26.0-34.0); MCHC 32.7 g/dL (28.0-37.0); MCV 92.5 fL (80.0-100.0); MPV 8.8 fl. (7.2-11.1); RBC 4.05 mil/uL (4.50-6.00); RDW-CV 13.1 % (10.5-14.5); WBC 15.1 thou/uL (4.0-11.0)
[2021-04-15 04:22] LABS: ALBUMIN 2.6 g/dL (3.4-5.0); CALCIUM 8.6 mg/dL (8.5-10.1); CREATININE 1.9 mg/dL (0.6-1.3); MAGNESIUM 2.5 mg/dL (1.8-2.4); POTASSIUM 4.5 mmol/L (3.5-5.1); TOTAL BILIRUBIN 0.2 mg/dL (<0.1-1.0)
[2021-04-15 07:35] LABS: GLYCOHEMOGLOBIN (HGB A1C) 7.8 % (4.8-5.6)
--- NOTE | 2021-04-15 09:53 | CON ---
[address] [address] CONSULTATION Name: LATISHA MCPHERSON Room: [address] IN M.R.#: [id number] Admission: 04/14/21 Attend Phys: Macey Man MD Discharge: Date of : 72 Report #: [id number] THIS REPORT FOR: cc: Nathan Zhao Matthew DO Blick, David R. MD [facility] ~ cc: ____ ____ DATE OF CONSULTATION: 04/14/2021 CARDIOLOGY CONSULTATION HISTORY OF PRESENT ILLNESS: The patient is a 50-year-old black male who I was asked to see in the hospital after he was noted to be in atrial fibrillation. Unfortunately, no old records are available. The patient primarily gets his care at [facility]. He states he has had atrial fibrillation in the past. He developed end-stage renal disease in 2006, and is on peritoneal dialysis. He also had hemodialysis through a temporary dialysis catheter in the past. In September of this year, he underwent cadaveric kidney transplant at [facility]. He apparently tolerated this well. Unfortunately, last week, he developed COVID-19, was hospitalized at [facility] for 2 days. Just discharged 4 days ago. Today, he walked out to the mailbox and felt the pain went into his chest and his arms. He felt short of breath, lightheaded. He called EMS and brought here to [place]. He was found to be in atrial fibrillation. Cardiology consultation requested. He denied any diaphoresis, nausea. He has had no fever, cough or edema. PAST MEDICAL HISTORY: He has had partial hemicolectomy in the past. He has required blood transfusions for anemia. He has a history of hypertension, diabetes. MEDICATIONS: Include insulin, glipizide, carvedilol, Lipitor. ALLERGIES: HE HAS NO KNOWN DRUG ALLERGIES. FAMILY HISTORY: Negative for heart disease. SOCIAL HISTORY: He is . He and his live in [place]. 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 No smoking. Rarely drinks alcohol. 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 He has had no history of asthma, liver disease, cancer, psychiatric illness, chronic skin condition. PHYSICAL EXAMINATION: [place] [address] CONSULTATION Name: LATISHA MCPHERSON Kirk Room: [address] IN [facility]#: [id number] Admission: 04/14/21 Attend Phys: Macey Man MD Discharge: Date of : 72 Report #: [id number] GENERAL: Revealed a middle-aged black male who appeared in no acute distress. VITAL SIGNS: He had a blood pressure of 110/70, pulse is 110 and irregular. He was afebrile. HEENT: He was anicteric. Conjunctivae pink. Mucosa moist. NECK: Veins nondistended. No carotid bruits. Neck is supple. CHEST: Clear to auscultation. HEART: Regular, tachycardia. No significant murmurs. ABDOMEN: Soft. EXTREMITIES: Had no edema. Dorsalis pedis pulse 1+ bilaterally. SKIN: Cool and dry. NEUROLOGIC: Nonfocal. IMAGING DATA: His ECG is not currently available, but on the monitor, he appears to be in atrial fibrillation with rapid ventricular response rate. His workup, he had a portable chest x-ray in the emergency room that showed cardiomegaly, mild vascular congestion. LABORATORY WORK: Sodium 131, potassium 5.2, creatinine 2.3. His high sensitivity troponin was only 29. BNP 3683. TSH 0.6. His hemoglobin 12.9. His COVID antigen stat test was negative. IMPRESSION AND RECOMMENDATIONS: 1. Atrial fibrillation. Previous history. Recommend echocardiogram. The patient currently on diltiazem. I would add digoxin, slow the ventricular response rate. I would resume his beta sheree. 2. Recent COVID-19 illness. 3. End-stage renal disease. Previous cadaveric renal transplant. 4. Hypertension. The patient has been on a beta sheree. 5. Hyperlipidemia. The patient is on a cholesterol medication in the form of Lipitor. 6. Diabetes. The patient has been on insulin in the past. 7. Previous history of anemia. <ELECTRONICALLY SIGNED> By: Alvaro Patel MD, FACC 04/15/21 0953 1525 [id number] Patel MD, FACC /nt
--- NOTE | 2021-04-15 10:06 | EKG ---
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: : 1970 Requested By: Alvaro Patel Order Number: [id number] [place]ver[place] MD: Alvaro Patel Measurements Intervals [place] Rate: 53 P: 11 IL: 138 QRS: -8 QRSD: 93 T: 214 QT: 431 QTc: 405 Interpretive Statements Sinus rhythm Atrial premature complexes LVH with secondary repolarization abnormality Baseline wander in lead(s) V1 Compared to ECG 04/14/2021 11:10:34 Atrial fibrillation no longer present Electronically Signed On 04-15-2021 10:05:59 IMPOSER by Alvaro Patel [email or web address] <ELECTRONICALLY SIGNED> By: Alvaro Patel MD, [facility] 04/15/21 1005 0832 Alvaro Patel MD, [facility] /EPI
[2021-04-16 03:01] VITALS: BP 152/85
[2021-04-16 03:02] LABS: ALBUMIN 2.5 g/dL (3.4-5.0); CALCIUM 8.3 mg/dL (8.5-10.1); CREATININE 2.1 mg/dL (0.6-1.3); MAGNESIUM 2.4 mg/dL (1.8-2.4); TOTAL BILIRUBIN 0.2 mg/dL (<0.1-1.0); TOTAL PROTEIN 6.5 g/dL (6.4-8.2)
[2021-04-16 03:03] LABS: HEMATOCRIT 36.7 % (42.0-52.0); HEMOGLOBIN 11.8 gm/dL (14.0-18.0); MCV 93.7 fL (80.0-100.0); MPV 8.9 fl. (7.2-11.1); RBC 3.92 mil/uL (4.50-6.00); RDW-CV 13.3 % (10.5-14.5); WBC 18.1 thou/uL (4.0-11.0)
[2021-04-16 06:00] VITALS: BP 162/86
[2021-04-16 09:01] VITALS: BP 155/76
[2021-04-16 09:14] VITALS: BP 154/74
--- NOTE | 2021-04-16 14:51 | EKG ---
[place] [address] ELECTROCARDIOGRAM REPORT Name: KYLATISHA L Room: [address] ADM IN .R.#: [id number] Admission: 04/14/21 Attend Phys: Macey Man, Discharge: Date of : 72 Date of Service: 04/16/21 1031 Report #: [id number] THIS REPORT FOR: //name// 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 : 1970 Requested By: Macey Man Order Number: [id number] Reading MD: Alvaro Patel Measurements Intervals [place] Rate: 67 P: 35 MS: 139 QRS: 8 QRSD: 97 T: -40 QT: 433 QTc: 457 Interpretive Statements Sinus rhythm LVH with secondary repolarization abnormality Baseline wander in lead(s) V6 Compared to ECG 04/15/2021 08:32:03 Atrial premature complex(es) no longer present Electronically Signed On 04-16-2021 14:51:41 MATERIAL LOADER by Alvaro Patel [email or web address] <ELECTRONICALLY SIGNED> By: Alvaro Patel MD, FAC 04/16/21 1451 103 1031 Alvaro Patel MD, FAC /EPI
[2021-04-16 15:00] VITALS: BP 138/66
[2021-04-16 18:00] VITALS: BP 150/80
[2021-04-17] VITALS: BP 156/73
[2021-04-17 04:00] VITALS: BP 150/82
[2021-04-17 08:13] LABS: HEMATOCRIT 36.5 % (42.0-52.0); MCH 30.4 pg (26.0-34.0); MCHC 32.7 g/dL (28.0-37.0); MCV 92.9 fL (80.0-100.0); MPV 9.2 fl. (7.2-11.1); RBC 3.93 mil/uL (4.50-6.00); RDW-CV 13.1 % (10.5-14.5)
[2021-04-17 08:23] LABS: ALBUMIN 2.7 g/dL (3.4-5.0); CALCIUM 8.6 mg/dL (8.5-10.1); TOTAL BILIRUBIN 0.2 mg/dL (<0.1-1.0); TOTAL PROTEIN 6.6 g/dL (6.4-8.2)
[2021-04-17 08:59] VITALS: BP 139/89
[2021-04-17 11:43] VITALS: BP 140/68
[2021-04-17] MEDS ORDERED: NORVASC5 MG PO (12:53)
[2021-04-17] MEDS ORDERED: PLAVIX 75 MG TA75 M1 PO (12:53)
[2021-04-17] MEDS ORDERED: PACERONE 200 M200 M1 PO (12:53)
[2021-04-17] MEDS ORDERED: ELIQUIS5 MG PO (12:53)
[2021-04-17 13:25] VITALS: BP 140/68
[2021-04-17 13:54] VITALS: BP 140/68
== END 2021-04-17 13:53 | disposition home health service (06) | DRG 177 ==
LOC: M.ERS 11:04 → M.TBA-ER 12:42 → M.ERS 12:42 → M.TBA-ER 12:48 → M.ICU 12:48 → M.ORTHSURG 04-16 19:20
PROVIDERS: Family Medicine; Internal Medicine; ADMIT Internal Medicine; ATTEND Internal Medicine
DX: U07.1 COVID-19 (principal); E11.00 Type 2 diabetes mellitus with hyperosmolarity without nonketotic hyperglycemic-hyperosmolar coma (NKHHC); I50.33 Acute on chronic diastolic (congestive) heart failure; J12.82 Pneumonia due to coronavirus disease 2019; Z94.0 Kidney transplant status; I69.351 Hemiplegia and hemiparesis following cerebral infarction affecting right dominant side; N17.9 Acute kidney failure, unspecified; I13.0 Hypertensive heart and chronic kidney disease with heart failure and stage 1 through stage 4 chronic kidney disease, or unspecified chronic kidney disease; I95.9 Hypotension, unspecified; D72.829 Elevated white blood cell count, unspecified; M06.9 Rheumatoid arthritis, unspecified; N18.30 Chronic kidney disease, stage 3 unspecified; E78.5 Hyperlipidemia, unspecified; E11.319 Type 2 diabetes mellitus with unspecified diabetic retinopathy without macular edema; I48.91 Unspecified atrial fibrillation; E11.22 Type 2 diabetes mellitus with diabetic chronic kidney disease; Z99.2 Dependence on renal dialysis; Z79.899 Other long term (current) drug therapy; Z91.048 Other nonmedicinal substance allergy status; Z90.49 Acquired absence of other specified parts of digestive tract; Z79.84 Long term (current) use of oral hypoglycemic drugs

== ENCOUNTER 2021-06-27 19:43 | Emergency (ER) | payer OTHER, MEDICAID ==
[~2021-06-27] VITALS: Ht 203.2 cm; Wt 99.8 kg
[~2021-06-27 19:43] MED LIST changes: +ATOVAQUONE750 MG/5 M PO; +COREG6.25 MG PO; +ELIQUIS5 MG PO; +GLIPIZIDE ER5 MG PO; +MYCOPHENOLIC A360 MG PO; +NORVASC5 MG PO; +PACERONE 200 M200 M1 PO; +PREDNISONE 5 MG5 MG PO; +PROGRAF5 MG PO
[2021-06-27] MEDS ORDERED: TRADJENTA5 MG (19:59)
[2021-06-27] MEDS ORDERED: LANTUS SUBQ (20:00)
[2021-06-27] MEDS ORDERED: APAP W/CODEINE1 TA2 PO (20:44)
[2021-06-27] MEDS ORDERED: PROAIR HFA8.5 GM INH (20:44)
[2021-06-27] MEDS ORDERED: MEDROLDOSEPACK PO (20:44)
[2021-06-27] MEDS ORDERED: AUGMENTIN 875-1 EACH PO (20:44)
[2021-06-27 20:59] VITALS: BP 144/89
== END 2021-06-27 21:00 | disposition home or self-care (01) ==
LOC: M.ERS 19:43
DX: J01.90 Acute sinusitis, unspecified (principal); J20.9 Acute bronchitis, unspecified; R42 Dizziness and giddiness; E11.22 Type 2 diabetes mellitus with diabetic chronic kidney disease; N18.6 End stage renal disease; Z94.0 Kidney transplant status; I48.91 Unspecified atrial fibrillation; M06.9 Rheumatoid arthritis, unspecified; Z86.16 Personal history of COVID-19; Z79.899 Other long term (current) drug therapy; Z79.4 Long term (current) use of insulin; Z79.82 Long term (current) use of aspirin

== ENCOUNTER 2021-07-11 22:04 | Emergency (ER) | payer OTHER, MEDICAID ==
[~2021-07-11] VITALS: Ht 203.2 cm; Wt 104.3 kg
[~2021-07-11 22:04] MED LIST changes: +APAP W/CODEINE1 TA2 PO; +AUGMENTIN 875-1 EACH PO; +LANTUS SUBQ; +MEDROLDOSEPACK PO; +PROAIR HFA8.5 GM INH; +TRADJENTA5 MG
[2021-07-11 22:20] VITALS: BP 144/88
[2021-07-11 23:20] LABS: HEMATOCRIT 39.7 % (42.0-52.0); HEMOGLOBIN 12.7 gm/dL (14.0-18.0); MCH 30.5 pg (26.0-34.0); MCHC 31.9 g/dL (28.0-37.0); MCV 95.5 fL (80.0-100.0); MPV 8.9 fl. (7.2-11.1); NUCLEATED RBCS 0 /100WBC; PLATELET COUNT* 239 thou/uL (150-400); RBC 4.15 mil/uL (4.50-6.00); RDW-CV 15.1 % (10.5-14.5); WBC 7.1 thou/uL (4.0-11.0)
[2021-07-11 23:50] LABS: CREATININE 2.3 mg/dL (0.6-1.3); POTASSIUM 4.7 mmol/L (3.5-5.1)
[2021-07-11 23:55] LABS: ALBUMIN 3.8 g/dL (3.4-5.0); TOTAL BILIRUBIN 0.3 mg/dL (<0.1-1.0); TOTAL PROTEIN 6.9 g/dL (6.4-8.2)
[2021-07-12 00:51] LABS: ABSOLUTE BASOPHILS 0.1 thou/uL (0.0-0.2); ABSOLUTE EOSINOPHILS 0.1 thou/uL (0.0-0.7); ABSOLUTE LYMPHOCYTES 0.6 thou/uL (0.8-5.3); ABSOLUTE MONOCYTES 0.5 thou/uL (0.0-1.2); ABSOLUTE NEUTROPHILS 5.8 thou/uL (1.6-8.1)
[2021-07-12 00:52] LABS: CLUMPED PLTS FEW; PLATELET ESTIMATE ADEQUATE
[2021-07-12 00:59] LABS: URINE BILIRUBIN NEGATIVE (Negative); URINE BLOOD NEGATIVE (Negative); URINE CLARITY CLEAR; URINE COLOR YELLOW; URINE GLUCOSE-RANDOM 3+ (Negative); URINE KETONES TRACE (Negative); URINE LEUKOCYTES-REFLEX NEGATIVE (Negative); URINE NITRITE-REFLEX NEGATIVE (Negative); URINE PROTEIN NEGATIVE (Negative); URINE UROBILINOGEN 0.2 E.U./dl (0.2-1.0)
[2021-07-12 01:08] LABS: AMP/METHAMP Negative (Negative); BARBITURATES Negative (Negative); BENZODIAZEPINES Negative (Negative); COCAINE Negative (Negative); METHADONE Negative (Negative); OPIATES POSITIVE (Negative); PCP Negative (Negative); THC Negative (Negative)
--- NOTE | 2021-07-12 05:42 | NUR ---
PER DR JENNIFER OSMAN TO USE CENTRAL LINE.
--- NOTE | 2021-07-12 05:58 | NUR ---
PER PT CONTACTED WIF TO INFORM HER OF TRANSFER
[2021-07-12 08:29] VITALS: BP 149/98
--- NOTE | 2021-07-12 12:15 | EKG ---
[place] [address] ELECTROCARDIOGRAM REPORT Name: LATISHA MCPHERSON Room: [facility]#: [id number] Admission: 07/11/21 Attend Phys: Discharge: 07/12/21 Date of : 72 Date of Service: 07/11/21 2317 Report #: [id number] THIS REPORT FOR: //name// [facility] ED Test Date: 2021-07-11 Test Time: 23:17:53 Pat Name: LATISHA MCPHERSON Department: Room: [facility] Gender: M Enrollment Management Manager: : 1970 Requested By: Ana Cavazos Order Number: [id number] MD: Thompson Cunha Measurements Intervals [place] Rate: 62 P: 42 MS: 155 QRS: 3 QRSD: 104 T: 122 QT: 422 QTc: 429 Interpretive Statements Sinus rhythm Atrial premature complexes Left atrial enlargement Left ventricular hypertrophy with repolarization abnormalities Abnormal T, consider ischemia, lateral leads Compared to ECG 04/16/2021 10:31:52 No significant changes noted Electronically Signed On 07-12-2021 12:15:44 CADD MANAGER by Thompson Cunha [email or web address] <ELECTRONICALLY SIGNED> By: Thompson Cunha MD, [facility] 07/12/21 1215 2317 2317 Thompson Cunha MD, [facility] /EPI
== END 2021-07-12 08:30 | disposition short-term general hospital (02) ==
LOC: M.ERS 22:04 → M.TBA-ER 07-12 02:36 → M.ERS 07-12 08:30
PROVIDERS: Personal Emergency Response Attendant
DX: N17.9 Acute kidney failure, unspecified (principal); Z20.822 Contact with and (suspected) exposure to COVID-19; R11.2 Nausea with vomiting, unspecified; R10.13 Epigastric pain; R10.33 Periumbilical pain; E11.22 Type 2 diabetes mellitus with diabetic chronic kidney disease; N18.6 End stage renal disease; M06.9 Rheumatoid arthritis, unspecified; I48.91 Unspecified atrial fibrillation; E11.319 Type 2 diabetes mellitus with unspecified diabetic retinopathy without macular edema; Z94.0 Kidney transplant status; Z86.73 Personal history of transient ischemic attack (TIA), and cerebral infarction without residual deficits; Z79.899 Other long term (current) drug therapy; Z79.4 Long term (current) use of insulin